=== PATIENT | female | born 1985 | race Caucasian/White ===

== ENCOUNTER 2017-06-15 21:38 | Emergency (ER) | payer OTHER ==
--- NOTE | ~2017-06-15 | EKG ---
PATIENT: CUCO SCHAEFER UNIT #: [id number] Ventricular Rate: 80 BPM Atrial Rate: 80 BPM P-R Interval: 136 ms QRS Duration: 82 ms Q-T Interval: 400 ms QTC Calculation(Bezet): 461 ms P [place]: 22 degrees Calculated R [place]: 18 degrees Calculated T [place]: 37 degrees Diagnosis Line: Normal sinus rhythm Diagnosis Line: Septal infarct , age undetermined Diagnosis Line: Abnormal ECG Diagnosis Line: When compared with ECG of 22-APR-2015 19:18, Diagnosis Line: Septal infarct is now Present Diagnosis Line: Confirmed by BHUMIKA TALLEY MD ([id number]) on Diagnosis Line: 06/16/2017 1:33:06 PM INTERPRETING MD: MAYANK DE LA ROSA
--- NOTE | ~2017-06-15 | CR72 ---
[facility] A Service of [facility] & [facility] RADIOLOGY TEXT RESULTS PATIENT: CUCO SCHAEFER LOCATION: [facility] : 83 UNIT #: [id number] AGE: [address]: Sravan Gan MD SEX: F ORDER DR: [id number] [facility] [address] [place], [place] [address] [id number] MR#: [id number] Acc #: [id number] NAME: CUCO SCHAEFER : 1985 SEX: F STUDY DATE/TIME: 06/15/2017 22:29 UNIT: [facility] ROOM: STUDY DESCRIPTION: CR Chest Single View Portable Attending Physician: Sravan Gan M.D. Ordering Physician: Sravan Gan M.D. Primary Care Physician: [facility] MEDICAL IMAGING REPORT This report is preliminary unless electronic signature is present EXAM Portable chest, 06/15/2017 at 22:29 INDICATION Chest pain that started today. History of bronchitis. COMPARISON 06/01/2015 FINDINGS A single AP portable view of the chest shows both lungs to be clear. The heart is normal in size. The mediastinal contour is normal. No significant bone abnormalities are seen. IMPRESSION Normal portable chest. Dictated by... Cornelio Chi Jr., M.D. THIS IS AN ELECTRONICALLY VERIFIED REPORT Cornelio Chi Jr., M.D. at 06/16/2017 6:00 AM TONY/alethea TD: 06/16/2017 03:17 JOB #: [id number] MEDICAL IMAGING REPORT Page 1 of 1 COPY
[~2017-06-15 21:38] MED LIST: AMOXICILLIN250 M1 PO; FLONASE16 GM; LOPRESSOR PO; MOBIC PO; PREDNISONE10 MG/DOSE PO
[2017-06-15 22:33] LABS: BASOPHIL# 0.1 X10e3 (0-0.3); BASOPHIL% 0.8 % (0-2.5); EOSINOPHIL# 0.2 X10e3 (0-0.7); EOSINOPHIL% 1.9 % (0.0-7.0); HEMATOCRIT 42.1 % (35.0-45.0); HEMOGLOBIN 14.5 gm/dL (12.0-16.0); LYMPHOCYTE# 5.2 X10e3 (1.0-3.5); LYMPHOCYTE% 39.4 % (17.0-45.0); MEAN CELL VOLUME 91.2 FL (83-96); MEAN CORPUSCULAR HEMOGLOBIN 31.4 PG (28-34); MEAN CORPUSCULAR HGB CONC 34.4 g/dL (30-36); MEAN PLATELET VOLUME 6.4 FL (6.5-11.5); MONOCYTE# 0.7 X10e3 (0-1.0); MONOCYTE% 5.6 % (3.0-12.0); NEUTROPHIL% 52.3 % (40-75); PLATELET COUNT 316 X10e3 (140-420); RED BLOOD COUNT 4.62 X10e (3.90-5.30); RED CELL DISTRIBUTION WIDTH 12.6 % (11.0-15.5); WHITE BLOOD COUNT 13.3 X10e3 (4.0-10.5)
[2017-06-15 22:43] LABS: DIFF IND NO
[2017-06-15 22:48] LABS: POC - CKMB <1.0 ng/mL (0.0-7.9); POC - TROPONIN <0.05 ng/mL (<=0.05)
[2017-06-15 23:04] LABS: ALBUMIN SERUM 3.8 g/dL (3.5-5.0); BILIRUBIN, DIRECT 0.1 mg/dL (0.0-0.2); BILIRUBIN,TOTAL 0.1 mg/dL (0.2-2.0); CALCIUM SERUM 8.7 mg/dL (8.4-10.2); CREATININE SERUM 0.7 mg/dL (0.6-1.4); GLOM FILT RATE Estimated 114.6 mL/min (>60); POTASSIUM 3.7 mmol/L (3.5-5.1); PROTEIN TOTAL SERUM 6.9 g/dL (6.0-8.3)
[2017-06-16 00:14] LABS: POC - CKMB <1.0 ng/mL (0.0-7.9); POC - TROPONIN <0.05 ng/mL (<=0.05)
== END 2017-06-16 00:25 | disposition home or self-care (01) ==
LOC: CED 21:38
PROVIDERS: Emergency Medicine
DX: R07.89 Other chest pain (principal); F41.9 Anxiety disorder, unspecified; F17.200 Nicotine dependence, unspecified, uncomplicated; Z88.1 Allergy status to other antibiotic agents; Z91.040 Latex allergy status; Z88.0 Allergy status to penicillin
CPT/HCPCS: 36415; 71010; 80048; 80076; 82553; 84484; 85025; 93005; 99285

== ENCOUNTER 2017-07-29 21:38 | Emergency (ER) | payer OTHER ==
[~2017-07-29] VITALS: Ht 160 cm; Wt 52.6 kg
== END 2017-07-29 23:00 | disposition home or self-care (01) ==
LOC: CED 21:38
DX: G89.29 Other chronic pain (principal); M54.40 Lumbago with sciatica, unspecified side; Z88.0 Allergy status to penicillin; Z88.1 Allergy status to other antibiotic agents; Z88.8 Allergy status to other drugs, medicaments and biological substances; Z91.041 Radiographic dye allergy status
CPT/HCPCS: 96372; 99283; J1885